=== PATIENT | female | born 1955 | race African-American/Black ===

== ENCOUNTER → 2017-03-01 | Outpatient (CLI) | payer MEDICARE, MEDICAID | END | disposition disaster alternative care site (69) | LOC: GAMB 05:07 | DX: R51 Headache (principal); Z98.890 Other specified postprocedural states; Z88.0 Allergy status to penicillin; Z88.8 Allergy status to other drugs, medicaments and biological substances | CPT/HCPCS: A0425; A0427 ==

== ENCOUNTER → 2017-05-21 | Emergency (ER) | payer MEDICARE, MEDICAID | END | disposition disaster alternative care site (69) | LOC: GAMB 13:57 | DX: I10 Essential (primary) hypertension (principal); Z88.0 Allergy status to penicillin; Z88.8 Allergy status to other drugs, medicaments and biological substances ==